=== PATIENT | male | born 1965 | race Caucasian/White ===

== ENCOUNTER 2021-01-21 10:39 | Emergency (ER) | payer BC | END 2021-01-21 15:28 | disposition home or self-care (01) | LOC: ERS 10:39 | DX: R56.9 Unspecified convulsions (principal); I10 Essential (primary) hypertension; E78.5 Hyperlipidemia, unspecified; F17.210 Nicotine dependence, cigarettes, uncomplicated | CPT/HCPCS: 36415; 70450; 71045; 80053; 80307; 82010; 83605; 84146; 85025; 96365; 96366; 96375; J1200; J2765 ==